=== PATIENT | female | born 1990 | race Caucasian/White ===

== ENCOUNTER 2018-01-09 20:39 | Emergency (ER) | payer OTHER ==
[2018-01-09 21:06] VITALS: BP 125/77
[2018-01-09] MEDS ORDERED: ALBUTEROL NEB 2.5 MG/3 ML INH STA ×2 (21:26→22:15)
--- NOTE | 2018-01-09 21:41 | ED Physician Documentation ---
History of Present Illness - Stated complaint Stated Complaint: COUGHING, WHEEZING,SOA - Chief complaint Chief Complaint: Resp - History obtained from History obtained from: Patient - History of Present Illness Timing: Yesterday Pain level max: 5 Pain level now: 5 Quality: aching, dull, with coughing Improved by: rest Worsened by: cough - Additonal information Additional information: Patient is a 27 year old female with seasonal allergies in the past, took zyrtec , but is now wheezing audibly. No history of asthma. Is a smoker. Has not used inhalers in the past. Has rhinorrhea, congestion and coughing. No fevers. 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 : None HEENT: None Psych: None Musculoskeletal: None Derm: None - Past Surgical History Past Surgical History: No - Present Medications Home Medications: Ambulatory Orders Medication Instructions Recorded Confirmed Albuterol Sulf [Ventolin Hfa 1 - 2 puffs INH Q4HR PRN #1 inhaler 01/09/18 Inhaler] Cetirizine [ZyrTEC] 10 mg PO DAILY 01/09/18 01/09/18 Etonogestrel [Nexplanon] 01/09/18 predniSONE [Prednisone] 20 mg PO DAILY #5 tablet 01/09/18 - Allergies Allergies/Adverse Reactions: Allergies Allergy/AdvReac Type Severity Reaction Status Date / Time No Known Drug Allergies Allergy Verified 01/09/18 21:06 - Social History Does the pt smoke?: Yes Smoking Status: Current every day smoker Does the pt drink ETOH?: No Does the pt have substance abuse?: No - Immunizations Immunizations are current?: Yes PD ED PE NORMAL - Vitals Vital signs reviewed: Yes - General General: Alert and oriented X 3, No acute distress, Well developed/nourished - HEENT HEENT: PERRL, Ears normal, Moist mucous membranes, Pharynx benign - Neck Neck: Supple, no meningeal sign - Cardiac Cardiac: RRR - Respiratory Respiratory: No respiratory distress, Other (wheezing B) - Abdomen Abdomen: Soft, Non tender, Non distended - Derm Derm: Warm and dry - Extremities Extremities: No edema, No calf tenderness / cord - Neuro Neuro: Alert and oriented X 3 - Psych Psych: Normal mood, Normal affect Results - Vitals Vitals: Vital Signs - 24 hr 01/09/18 01/09/18 01/09/18 21:00 21:47 22:41 Temperature 37 C Heart Rate 122 H 108 H 112 H Respiratory 18 12 12 Rate Blood Pressure 125/77 O2 Saturation 96 01/09/18 22:48 Temperature Heart Rate 106 H Respiratory 16 Rate Blood Pressure O2 Saturation 99 Oxygen O2 Source Room air - Labs Labs: Laboratory Tests 01/09/18 21:27 Ur Specific [place] 1.025 Urine HCG, Qual NEGATIVE PD MEDICAL DECISION MAKING - ED course Complexity details: reviewed results, re-evaluated patient, considered differential, d/w patient ED course: Patient is a 27-year-old female who presents to the emergency department with what appears to be either seasonal allergies versus a viral URI complicated by wheezing. Feels significantly improved after steroids and nebulizer treatment. No hypoxia. No respiratory distress. Improved aeration throughout her lungs , minimal wheezing present residually. Will prescribe steroids and inhalers for home and follow-up with her doctor. Patient counseled regarding signs and symptoms for which I believe and urgent re-evaluation would be necessary. Patient with good understanding of and agreement to plan and is comfortable going home at this time This document was made in part using voice recognition software. While efforts are made to proofread this document, sound alike and grammatical errors may occur. Departure - Departure Disposition: 01 Home, Self Care Clinical Impression: Viral URI Seasonal allergies Qualifiers: Allergic rhinitis trigger: unspecified Qualified Code(s): J30.2 - Other seasonal allergic rhinitis Condition: Good Instructions: ED Reactive Airway Disease Follow-Up: your,doctor in 1 week [Other] Prescriptions: Albuterol Sulf [Ventolin Hfa Inhaler] 1 - 2 puffs INH Q4HR PRN #1 inhaler PRN Reason: Shortness Of Air/Wheezing predniSONE [Prednisone] 20 mg PO DAILY #5 tablet Comments: Return if you worsen. Use the inhalers as instructed. Discharge Date/Time: 01/09/18 22:54
[2018-01-09] MEDS ORDERED: predniSONE 20 MG TABLET PO STA (21:42)
[2018-01-09 21:52] LABS: HCG UR QUAL NEGATIVE
== END 2018-01-09 22:54 | disposition home or self-care (01) ==
LOC: ED 20:39
DX: F17.200 Nicotine dependence, unspecified, uncomplicated (principal); J06.9 Acute upper respiratory infection, unspecified; B97.89 Other viral agents as the cause of diseases classified elsewhere; J30.2 Other seasonal allergic rhinitis
CPT/HCPCS: 81025; 94640; 94664; 99283; J7512